=== PATIENT | female | born 1980 | race Caucasian/White ===

== ENCOUNTER 2023-08-21 07:15 | Outpatient (RCR) | payer OTHER, SELFPAY ==
[2023-08-14 11:00] VITALS: BP 120/80; PULSE 58; TEMP 36.9; O2SAT 99
[2023-08-14] MEDS: FERRIC CARBOXYMALTOSE 750 MG in 0.9 % SODIUM CHLORIDE 250 ML 795 MG IV (11:33)
[2023-08-21 10:55] VITALS: BP 121/82; PULSE 59; TEMP 36.6; O2SAT 98
[2023-08-21] MEDS: FERRIC CARBOXYMALTOSE 750 MG in 0.9 % SODIUM CHLORIDE 250 ML 795 MG IV (11:10)
--- NOTE | 2023-08-21 11:28 | PC.NURSE ---
1055: Pt. to [facility] amb for iron infusion. Seated in recliner. VSS. IV initiated to left arm, see documentation. Pt. drinking coffee, declines snack. Relays feeling better since first infusion. Denies needs or c/o. IV Injectafer initiated.
== END 2023-08-21 12:24 | disposition home or self-care (01) ==
LOC: INF 07:15
PROVIDERS: PCP Family Medicine; Visit Provider Family Medicine
DX: K90.0 Celiac disease (principal); K90.9 Intestinal malabsorption, unspecified; E61.1 Iron deficiency
CPT/HCPCS: 96365; J1439